=== PATIENT | female | born 1980 | race Caucasian/White ===

== ENCOUNTER 2020-02-04 12:20 | Outpatient (REF) | payer MEDICARE, MEDICAID, SELFPAY ==
[2020-02-04 13:42] LABS: Basophils Absolute Auto 0.1 X10*3/uL (0.0-0.2); Basophils Percent Auto 0.9 % (0-2); Eosinophils Absolute Auto 0.2 X10*3/uL (0.0-0.4); Eosinophils Percent Auto 2.8 % (0-4); Hematocrit 39.5 % (37-47); Hemoglobin 12.9 g/dl (12.0-16.0); Imm Gran Abs Auto 0.05 X10*3/uL (0.00-0.03); Imm Gran Pct Auto 0.7 % (0.0-0.4); Lymphocytes Absolute Auto 2.7 X10*3/uL (1.2-4.9); MANUAL DIFF FLAG NO; Mean Corpuscular HGB Conc 32.7 g/dl (31.0-35.0); Mean Corpuscular Hemoglobin 28.7 pg (27.0-33.0); Mean Platelet Volume 8.9 fL (9.4-12.3); Monocytes Absolute Auto 0.4 X10*3/uL (0.1-1.2); Monocytes Percent Auto 5.9 % (2-11); Neutrophils Absolute Auto 3.4 X10*3/uL (2.0-8.3); Neutrophils Percent Auto 49.7 % (45-73); Platelet Count 279 X10*3/uL (160-400); Red Blood Count 4.49 X10*6/uL (4.20-5.50); Red Cell Distribution Width 12.9 % (11.0-16.0); White Blood Count 6.8 X10*3/uL (4.8-10.8)
== END 2020-02-04 12:21 | disposition home or self-care (01) ==
LOC: HO.LABR 12:20
PROVIDERS: PCP Internal Medicine; Visit Provider Clinical Nurse Specialist Psychiatric/Mental Health, Adult
DX: Z79.899 Other long term (current) drug therapy (principal)
CPT/HCPCS: 36415; 85025

== ENCOUNTER 2020-03-06 13:56 | Outpatient (REF) | payer MEDICARE, MEDICAID, SELFPAY ==
[2020-03-06 14:46] LABS: Basophils Absolute Auto 0.1 X10*3/uL (0.0-0.2); Basophils Percent Auto 0.7 % (0-2); Eosinophils Absolute Auto 0.3 X10*3/uL (0.0-0.4); Eosinophils Percent Auto 2.9 % (0-4); Hematocrit 40.8 % (37-47); Hemoglobin 13.3 g/dl (12.0-16.0); Imm Gran Abs Auto 0.06 X10*3/uL (0.00-0.03); Imm Gran Pct Auto 0.7 % (0.0-0.4); Lymphocytes Absolute Auto 3.4 X10*3/uL (1.2-4.9); Lymphocytes Percent Auto 37.7 % (20-40); MANUAL DIFF FLAG NO; Mean Corpuscular HGB Conc 32.6 g/dl (31.0-35.0); Mean Corpuscular Hemoglobin 28.9 pg (27.0-33.0); Mean Corpuscular Volume 88.5 fL (80-98); Mean Platelet Volume 8.9 fL (9.4-12.3); Monocytes Absolute Auto 0.5 X10*3/uL (0.1-1.2); Monocytes Percent Auto 5.6 % (2-11); Neutrophils Absolute Auto 4.8 X10*3/uL (2.0-8.3); Neutrophils Percent Auto 52.4 % (45-73); Platelet Count 297 X10*3/uL (160-400); Red Blood Count 4.61 X10*6/uL (4.20-5.50); Red Cell Distribution Width 12.9 % (11.0-16.0); White Blood Count 9.1 X10*3/uL (4.8-10.8)
== END 2020-03-06 13:57 | disposition home or self-care (01) ==
LOC: HO.LABR 13:56
PROVIDERS: PCP Internal Medicine; Visit Provider Clinical Nurse Specialist Psychiatric/Mental Health, Adult
DX: Z79.899 Other long term (current) drug therapy (principal)
CPT/HCPCS: 36415; 85025

== ENCOUNTER 2020-04-03 12:06 | Outpatient (REF) | payer MEDICARE, MEDICAID, SELFPAY ==
[2020-04-03 12:39] LABS: MANUAL DIFF FLAG NO
[2020-04-03 12:44] LABS: Basophils Absolute Auto 0.1 X10*3/uL (0.0-0.2); Basophils Percent Auto 0.8 % (0-2); Eosinophils Absolute Auto 0.2 X10*3/uL (0.0-0.4); Eosinophils Percent Auto 2.9 % (0-4); Hematocrit 40.3 % (37-47); Hemoglobin 13.3 g/dl (12.0-16.0); Imm Gran Abs Auto 0.04 X10*3/uL (0.00-0.03); Imm Gran Pct Auto 0.5 % (0.0-0.4); Lymphocytes Percent Auto 38.6 % (20-40); Mean Corpuscular Volume 87.8 fL (80-98); Mean Platelet Volume 8.6 fL (9.4-12.3); Monocytes Absolute Auto 0.4 X10*3/uL (0.1-1.2); Monocytes Percent Auto 5.6 % (2-11); Neutrophils Absolute Auto 4.1 X10*3/uL (2.0-8.3); Neutrophils Percent Auto 51.6 % (45-73); Platelet Count 299 X10*3/uL (160-400); Red Blood Count 4.59 X10*6/uL (4.20-5.50); Red Cell Distribution Width 12.9 % (11.0-16.0); White Blood Count 7.9 X10*3/uL (4.8-10.8)
== END 2020-04-03 12:07 | disposition home or self-care (01) ==
LOC: HO.LAB 12:06
PROVIDERS: PCP Internal Medicine; Visit Provider Clinical Nurse Specialist Psychiatric/Mental Health, Adult
DX: Z79.899 Other long term (current) drug therapy (principal)
CPT/HCPCS: 36415; 85025

== ENCOUNTER 2020-05-07 11:04 | Outpatient (REF) | payer MEDICARE, MEDICAID, SELFPAY ==
[2020-05-07 12:03] LABS: MANUAL DIFF FLAG NO
[2020-05-07 12:13] LABS: Basophils Absolute Auto 0.1 X10*3/uL (0.0-0.2); Basophils Percent Auto 0.7 % (0-2); Eosinophils Absolute Auto 0.2 X10*3/uL (0.0-0.4); Eosinophils Percent Auto 2.4 % (0-4); Hematocrit 41.4 % (37-47); Hemoglobin 13.2 g/dl (12.0-16.0); Imm Gran Abs Auto 0.07 X10*3/uL (0.00-0.03); Imm Gran Pct Auto 0.8 % (0.0-0.4); Lymphocytes Absolute Auto 3.4 X10*3/uL (1.2-4.9); Lymphocytes Percent Auto 37.5 % (20-40); Mean Corpuscular HGB Conc 31.9 g/dl (31.0-35.0); Mean Corpuscular Hemoglobin 28.2 pg (27.0-33.0); Mean Corpuscular Volume 88.5 fL (80-98); Mean Platelet Volume 8.9 fL (9.4-12.3); Monocytes Absolute Auto 0.6 X10*3/uL (0.1-1.2); Monocytes Percent Auto 6.8 % (2-11); Neutrophils Absolute Auto 4.7 X10*3/uL (2.0-8.3); Neutrophils Percent Auto 51.8 % (45-73); Platelet Count 298 X10*3/uL (160-400); Red Blood Count 4.68 X10*6/uL (4.20-5.50); Red Cell Distribution Width 12.8 % (11.0-16.0); White Blood Count 9.1 X10*3/uL (4.8-10.8)
== END 2020-05-07 11:05 | disposition home or self-care (01) ==
LOC: HO.LABR 11:04
PROVIDERS: PCP Internal Medicine; Visit Provider Clinical Nurse Specialist Psychiatric/Mental Health, Adult
DX: Z79.899 Other long term (current) drug therapy (principal)
CPT/HCPCS: 36415; 85025

== ENCOUNTER 2020-06-05 14:39 | Outpatient (REF) | payer MEDICARE, MEDICAID, SELFPAY ==
[2020-06-05 15:34] LABS: MANUAL DIFF FLAG NO
[2020-06-05 15:39] LABS: Basophils Absolute Auto 0.1 X10*3/uL (0.0-0.2); Basophils Percent Auto 0.8 % (0-2); Eosinophils Absolute Auto 0.2 X10*3/uL (0.0-0.4); Eosinophils Percent Auto 3.3 % (0-4); Hematocrit 38.8 % (37-47); Hemoglobin 12.7 g/dl (12.0-16.0); Imm Gran Abs Auto 0.05 X10*3/uL (0.00-0.03); Imm Gran Pct Auto 0.7 % (0.0-0.4); Lymphocytes Absolute Auto 2.4 X10*3/uL (1.2-4.9); Lymphocytes Percent Auto 32.5 % (20-40); Mean Corpuscular HGB Conc 32.7 g/dl (31.0-35.0); Mean Corpuscular Hemoglobin 28.9 pg (27.0-33.0); Mean Corpuscular Volume 88.2 fL (80-98); Mean Platelet Volume 8.9 fL (9.4-12.3); Monocytes Absolute Auto 0.6 X10*3/uL (0.1-1.2); Monocytes Percent Auto 7.5 % (2-11); Neut%MD 55.2 %; Neutrophils Absolute Auto 4.1 X10*3/uL (2.0-8.3); Neutrophils Percent Auto 55.2 % (45-73); Platelet Count 295 X10*3/uL (160-400); WBCANC 7.4 X10*3/uL; White Blood Count 7.4 X10*3/uL (4.8-10.8)
== END 2020-06-05 14:40 | disposition home or self-care (01) ==
LOC: HO.LABR 14:39
PROVIDERS: PCP Internal Medicine; Visit Provider Clinical Nurse Specialist Psychiatric/Mental Health, Adult
DX: Z79.899 Other long term (current) drug therapy (principal)
CPT/HCPCS: 36415; 85025; 85048

== ENCOUNTER 2020-07-03 14:36 | Outpatient (REF) | payer MEDICARE, MEDICAID, SELFPAY ==
[2020-07-03 15:13] LABS: MANUAL DIFF FLAG NO
[2020-07-03 15:18] LABS: Basophils Absolute Auto 0.1 X10*3/uL (0.0-0.2); Basophils Percent Auto 0.6 % (0-2); Eosinophils Absolute Auto 0.2 X10*3/uL (0.0-0.4); Eosinophils Percent Auto 2.2 % (0-4); Hematocrit 39.8 % (37-47); Hemoglobin 13.1 g/dl (12.0-16.0); Imm Gran Abs Auto 0.04 X10*3/uL (0.00-0.03); Imm Gran Pct Auto 0.4 % (0.0-0.4); Lymphocytes Absolute Auto 3.8 X10*3/uL (1.2-4.9); Lymphocytes Percent Auto 41.6 % (20-40); Mean Corpuscular HGB Conc 32.9 g/dl (31.0-35.0); Mean Corpuscular Volume 88.1 fL (80-98); Monocytes Absolute Auto 0.6 X10*3/uL (0.1-1.2); Monocytes Percent Auto 6.4 % (2-11); Neut%MD 48.8 %; Neutrophils Absolute Auto 4.4 X10*3/uL (2.0-8.3); Neutrophils Percent Auto 48.8 % (45-73); Platelet Count 276 X10*3/uL (160-400); Red Blood Count 4.52 X10*6/uL (4.20-5.50); Red Cell Distribution Width 13.3 % (11.0-16.0)
== END 2020-07-03 14:37 | disposition home or self-care (01) ==
LOC: HO.LABR 14:36
PROVIDERS: PCP Internal Medicine; Visit Provider Clinical Nurse Specialist Psychiatric/Mental Health, Adult
DX: Z79.899 Other long term (current) drug therapy (principal)
CPT/HCPCS: 36415; 85025; 85048

== ENCOUNTER 2020-08-03 10:15 | Outpatient (REF) | payer MEDICARE, MEDICAID, SELFPAY ==
[2020-08-03 10:52] LABS: MANUAL DIFF FLAG NO
[2020-08-03 11:00] LABS: Basophils Absolute Auto 0.1 X10*3/uL (0.0-0.2); Basophils Percent Auto 0.6 % (0-2); Eosinophils Absolute Auto 0.3 X10*3/uL (0.0-0.4); Eosinophils Percent Auto 2.5 % (0-4); Hematocrit 40.7 % (37-47); Hemoglobin 13.2 g/dl (12.0-16.0); Imm Gran Abs Auto 0.11 X10*3/uL (0.00-0.03); Imm Gran Pct Auto 1.1 % (0.0-0.4); Lymphocytes Absolute Auto 3.2 X10*3/uL (1.2-4.9); Lymphocytes Percent Auto 30.6 % (20-40); Mean Corpuscular HGB Conc 32.4 g/dl (31.0-35.0); Mean Corpuscular Hemoglobin 28.3 pg (27.0-33.0); Mean Corpuscular Volume 87.2 fL (80-98); Mean Platelet Volume 8.6 fL (9.4-12.3); Monocytes Absolute Auto 0.7 X10*3/uL (0.1-1.2); Neutrophils Percent Auto 58.2 % (45-73); Platelet Count 268 X10*3/uL (160-400); Red Blood Count 4.67 X10*6/uL (4.20-5.50); Red Cell Distribution Width 13.1 % (11.0-16.0); White Blood Count 10.3 X10*3/uL (4.8-10.8)
== END 2020-08-03 10:16 | disposition home or self-care (01) ==
LOC: HO.LABR 10:15
PROVIDERS: PCP Internal Medicine; Visit Provider Clinical Nurse Specialist Psychiatric/Mental Health, Adult
DX: Z79.899 Other long term (current) drug therapy (principal)
CPT/HCPCS: 36415; 85025

== ENCOUNTER 2020-09-03 09:43 | Outpatient (REF) | payer MEDICARE, MEDICAID, SELFPAY ==
[2020-09-03 10:10] LABS: MANUAL DIFF FLAG NO
[2020-09-03 10:20] LABS: Basophils Percent Auto 0.4 % (0-2); Eosinophils Absolute Auto 0.2 X10*3/uL (0.0-0.4); Eosinophils Percent Auto 2.3 % (0-4); Hematocrit 39.7 % (37-47); Hemoglobin 12.8 g/dl (12.0-16.0); Imm Gran Abs Auto 0.11 X10*3/uL (0.00-0.03); Imm Gran Pct Auto 1.1 % (0.0-0.4); Lymphocytes Absolute Auto 3.6 X10*3/uL (1.2-4.9); Lymphocytes Percent Auto 34.3 % (20-40); Mean Corpuscular HGB Conc 32.2 g/dl (31.0-35.0); Mean Corpuscular Hemoglobin 28.3 pg (27.0-33.0); Mean Corpuscular Volume 87.8 fL (80-98); Mean Platelet Volume 8.7 fL (9.4-12.3); Monocytes Absolute Auto 0.8 X10*3/uL (0.1-1.2); Monocytes Percent Auto 7.6 % (2-11); Neutrophils Absolute Auto 5.7 X10*3/uL (2.0-8.3); Neutrophils Percent Auto 54.3 % (45-73); Platelet Count 287 X10*3/uL (160-400); Red Blood Count 4.52 X10*6/uL (4.20-5.50); White Blood Count 10.5 X10*3/uL (4.8-10.8)
== END 2020-09-03 09:44 | disposition home or self-care (01) ==
LOC: HO.LABR 09:43
PROVIDERS: PCP Internal Medicine; Visit Provider Clinical Nurse Specialist Psychiatric/Mental Health, Adult
DX: Z79.899 Other long term (current) drug therapy (principal)
CPT/HCPCS: 36415; 85025

== ENCOUNTER 2020-10-05 11:02 | Outpatient (REF) | payer MEDICARE, MEDICAID, SELFPAY ==
[2020-10-05 11:36] LABS: MANUAL DIFF FLAG NO
[2020-10-05 11:44] LABS: Basophils Absolute Auto 0.1 X10*3/uL (0.0-0.2); Basophils Percent Auto 0.6 % (0-2); Eosinophils Absolute Auto 0.2 X10*3/uL (0.0-0.4); Eosinophils Percent Auto 1.7 % (0-4); Hematocrit 37.9 % (37-47); Hemoglobin 12.4 g/dl (12.0-16.0); Imm Gran Abs Auto 0.09 X10*3/uL (0.00-0.03); Imm Gran Pct Auto 0.7 % (0.0-0.4); Lymphocytes Absolute Auto 2.7 X10*3/uL (1.2-4.9); Lymphocytes Percent Auto 21.5 % (20-40); Mean Corpuscular HGB Conc 32.7 g/dl (31.0-35.0); Mean Corpuscular Hemoglobin 28.8 pg (27.0-33.0); Mean Corpuscular Volume 87.9 fL (80-98); Mean Platelet Volume 8.6 fL (9.4-12.3); Monocytes Absolute Auto 0.9 X10*3/uL (0.1-1.2); Monocytes Percent Auto 7.4 % (2-11); Neutrophils Absolute Auto 8.5 X10*3/uL (2.0-8.3); Neutrophils Percent Auto 68.1 % (45-73); Platelet Count 289 X10*3/uL (160-400); Red Blood Count 4.31 X10*6/uL (4.20-5.50); Red Cell Distribution Width 12.9 % (11.0-16.0); White Blood Count 12.4 X10*3/uL (4.8-10.8)
== END 2020-10-05 11:03 | disposition home or self-care (01) ==
LOC: HO.LABR 11:02
PROVIDERS: PCP Internal Medicine; Visit Provider Clinical Nurse Specialist Psychiatric/Mental Health, Adult
DX: Z79.899 Other long term (current) drug therapy (principal)
CPT/HCPCS: 36415; 85025

== ENCOUNTER 2020-10-29 12:24 | Outpatient (REF) | payer MEDICARE, MEDICAID, SELFPAY ==
[2020-10-29 13:11] LABS: MANUAL DIFF FLAG NO
[2020-10-29 13:20] LABS: Basophils Absolute Auto 0.1 X10*3/uL (0.0-0.2); Basophils Percent Auto 0.7 % (0-2); Eosinophils Absolute Auto 0.2 X10*3/uL (0.0-0.4); Eosinophils Percent Auto 2.1 % (0-4); Hematocrit 40.9 % (37-47); Hemoglobin 13.3 g/dl (12.0-16.0); Imm Gran Abs Auto 0.07 X10*3/uL (0.00-0.03); Imm Gran Pct Auto 0.8 % (0.0-0.4); Lymphocytes Absolute Auto 1.9 X10*3/uL (1.2-4.9); Lymphocytes Percent Auto 22.5 % (20-40); Mean Corpuscular HGB Conc 32.5 g/dl (31.0-35.0); Mean Corpuscular Hemoglobin 28.8 pg (27.0-33.0); Mean Corpuscular Volume 88.5 fL (80-98); Mean Platelet Volume 8.7 fL (9.4-12.3); Monocytes Absolute Auto 0.6 X10*3/uL (0.1-1.2); Monocytes Percent Auto 6.9 % (2-11); Neutrophils Absolute Auto 5.7 X10*3/uL (2.0-8.3); Platelet Count 290 X10*3/uL (160-400); Red Blood Count 4.62 X10*6/uL (4.20-5.50); Red Cell Distribution Width 12.9 % (11.0-16.0); White Blood Count 8.6 X10*3/uL (4.8-10.8)
== END 2020-10-29 12:25 | disposition home or self-care (01) ==
LOC: HO.LABR 12:24
PROVIDERS: PCP Internal Medicine; Visit Provider Clinical Nurse Specialist Psychiatric/Mental Health, Adult
DX: Z79.899 Other long term (current) drug therapy (principal)
CPT/HCPCS: 36415; 85025

== ENCOUNTER 2020-12-02 10:01 | Outpatient (REF) | payer MEDICARE, MEDICAID, SELFPAY ==
[2020-12-02 10:23] LABS: MANUAL DIFF FLAG NO
[2020-12-02 10:32] LABS: Basophils Absolute Auto 0.1 X10*3/uL (0.0-0.2); Basophils Percent Auto 0.7 % (0-2); Eosinophils Absolute Auto 0.2 X10*3/uL (0.0-0.4); Eosinophils Percent Auto 3.1 % (0-4); Hematocrit 40.7 % (37-47); Hemoglobin 13.3 g/dl (12.0-16.0); Imm Gran Abs Auto 0.05 X10*3/uL (0.00-0.03); Imm Gran Pct Auto 0.7 % (0.0-0.4); Lymphocytes Absolute Auto 2.8 X10*3/uL (1.2-4.9); Lymphocytes Percent Auto 37.5 % (20-40); Mean Corpuscular HGB Conc 32.7 g/dl (31.0-35.0); Mean Corpuscular Hemoglobin 28.4 pg (27.0-33.0); Mean Platelet Volume 8.4 fL (9.4-12.3); Monocytes Absolute Auto 0.5 X10*3/uL (0.1-1.2); Monocytes Percent Auto 6.1 % (2-11); Neutrophils Absolute Auto 3.9 X10*3/uL (2.0-8.3); Neutrophils Percent Auto 51.9 % (45-73); Platelet Count 271 X10*3/uL (160-400); Red Blood Count 4.68 X10*6/uL (4.20-5.50); White Blood Count 7.5 X10*3/uL (4.8-10.8)
== END 2020-12-02 10:02 | disposition home or self-care (01) ==
LOC: HO.LABR 10:01
PROVIDERS: PCP Internal Medicine; Visit Provider Clinical Nurse Specialist Psychiatric/Mental Health, Adult
DX: Z79.899 Other long term (current) drug therapy (principal)
CPT/HCPCS: 36415; 85025

== ENCOUNTER 2021-01-11 14:02 | Outpatient (REF) | payer MEDICARE, MEDICAID, SELFPAY ==
[2021-01-11 15:58] LABS: Basophils Absolute Auto 0.1 X10*3/uL (0.0-0.2); Basophils Percent Auto 0.6 % (0-2); Eosinophils Absolute Auto 0.2 X10*3/uL (0.0-0.4); Eosinophils Percent Auto 1.5 % (0-4); Hematocrit 41.5 % (37-47); Hemoglobin 13.5 g/dl (12.0-16.0); Imm Gran Abs Auto 0.07 X10*3/uL (0.00-0.03); Imm Gran Pct Auto 0.6 % (0.0-0.4); Lymphocytes Absolute Auto 2.9 X10*3/uL (1.2-4.9); Lymphocytes Percent Auto 26.6 % (20-40); MANUAL DIFF FLAG NO; Mean Corpuscular HGB Conc 32.5 g/dl (31.0-35.0); Mean Corpuscular Hemoglobin 28.7 pg (27.0-33.0); Mean Corpuscular Volume 88.1 fL (80-98); Mean Platelet Volume 8.9 fL (9.4-12.3); Monocytes Absolute Auto 0.6 X10*3/uL (0.1-1.2); Monocytes Percent Auto 5.1 % (2-11); Neut%MD 65.6 %; Neutrophils Absolute Auto 7.1 X10*3/uL (2.0-8.3); Neutrophils Percent Auto 65.6 % (45-73); Platelet Count 289 X10*3/uL (160-400); Red Blood Count 4.71 X10*6/uL (4.20-5.50); Red Cell Distribution Width 13.2 % (11.0-16.0); WBCANC 10.9 X10*3/uL; White Blood Count 10.9 X10*3/uL (4.8-10.8)
== END 2021-01-11 14:03 | disposition home or self-care (01) ==
LOC: HO.LABR 14:02
PROVIDERS: PCP Internal Medicine; Visit Provider Clinical Nurse Specialist Psychiatric/Mental Health, Adult
DX: Z79.899 Other long term (current) drug therapy (principal)
CPT/HCPCS: 36415; 85025

== ENCOUNTER 2021-02-02 11:04 | Outpatient (REF) | payer MEDICARE, MEDICAID, SELFPAY ==
[2021-02-02 12:01] LABS: Neutrophils Absolute Auto 6.4 X10*3/uL (2.0-8.3); White Blood Count 10.4 X10*3/uL (4.8-10.8)
== END 2021-02-02 11:05 | disposition home or self-care (01) ==
LOC: HO.LABR 11:04
PROVIDERS: PCP Internal Medicine; Visit Provider Clinical Nurse Specialist Psychiatric/Mental Health, Adult
DX: Z79.899 Other long term (current) drug therapy (principal)
CPT/HCPCS: 36415; 85048

== ENCOUNTER 2021-03-02 14:21 | Outpatient (REF) | payer MEDICARE, MEDICAID, SELFPAY ==
[2021-03-02 14:29] LABS: MANUAL DIFF FLAG NO
[2021-03-02 14:46] LABS: Basophils Absolute Auto 0.1 X10*3/uL (0.0-0.2); Basophils Percent Auto 0.6 % (0-2); Eosinophils Absolute Auto 0.2 X10*3/uL (0.0-0.4); Eosinophils Percent Auto 2.7 % (0-4); Hematocrit 38.8 % (37.0-47.0); Hemoglobin 12.8 g/dl (12.0-16.0); Imm Gran Abs Auto 0.07 X10*3/uL (0.00-0.03); Imm Gran Pct Auto 0.9 % (0.0-0.4); Lymphocytes Absolute Auto 2.7 X10*3/uL (1.2-4.9); Lymphocytes Percent Auto 35.1 % (20-40); Mean Corpuscular Hemoglobin 28.8 pg (27.0-33.0); Mean Corpuscular Volume 87.4 fL (80.0-98.0); Mean Platelet Volume 8.5 fL (9.4-12.3); Monocytes Absolute Auto 0.6 X10*3/uL (0.1-1.2); Monocytes Percent Auto 7.4 % (2-11); Neutrophils Absolute Auto 4.1 x10*3/uL (2.0-8.3); Neutrophils Percent Auto 53.3 % (45-73); Platelet Count 276 X10*3/uL (160-400); Red Blood Count 4.44 X10*6/uL (4.20-5.50); Red Cell Distribution Width 13.2 % (11.0-16.0); White Blood Count 7.7 X10*3/uL (4.8-10.8)
== END 2021-03-02 14:22 | disposition home or self-care (01) ==
LOC: HO.LABR 14:21
PROVIDERS: PCP Internal Medicine; Visit Provider Clinical Nurse Specialist Psychiatric/Mental Health, Adult
DX: Z79.899 Other long term (current) drug therapy (principal)
CPT/HCPCS: 36415; 85025

== ENCOUNTER 2021-04-01 12:33 | Outpatient (REF) | payer MEDICARE, MEDICAID, SELFPAY ==
[2021-04-01 12:44] LABS: MANUAL DIFF FLAG NO
[2021-04-01 13:08] LABS: Basophils Percent Auto 0.5 % (0-2); Eosinophils Absolute Auto 0.1 X10*3/uL (0.0-0.4); Eosinophils Percent Auto 1.1 % (0-4); Hematocrit 38.5 % (37.0-47.0); Hemoglobin 12.5 g/dl (12.0-16.0); Imm Gran Abs Auto 0.06 X10*3/uL (0.00-0.03); Imm Gran Pct Auto 0.8 % (0.0-0.4); Lymphocytes Absolute Auto 2.5 X10*3/uL (1.2-4.9); Lymphocytes Percent Auto 31.4 % (20-40); Mean Corpuscular HGB Conc 32.5 g/dl (31.0-35.0); Mean Corpuscular Hemoglobin 28.6 pg (27.0-33.0); Mean Corpuscular Volume 88.1 fL (80.0-98.0); Mean Platelet Volume 8.7 fL (9.4-12.3); Monocytes Absolute Auto 0.4 X10*3/uL (0.1-1.2); Monocytes Percent Auto 5.6 % (2-11); Neut%MD 60.6 %; Neutrophils Absolute Auto 4.8 x10*3/uL (2.0-8.3); Neutrophils Percent Auto 60.6 % (45-73); Platelet Count 277 X10*3/uL (160-400); Red Blood Count 4.37 X10*6/uL (4.20-5.50); WBCANC 7.9 X10*3/uL; White Blood Count 7.9 X10*3/uL (4.8-10.8)
== END 2021-04-01 12:34 | disposition home or self-care (01) ==
LOC: HO.LABR 12:33
PROVIDERS: PCP Internal Medicine; Visit Provider Clinical Nurse Specialist Psychiatric/Mental Health, Adult
DX: Z79.899 Other long term (current) drug therapy (principal)
CPT/HCPCS: 36415; 85025

== ENCOUNTER 2021-05-07 14:23 | Outpatient (REF) | payer MEDICARE, MEDICAID, SELFPAY ==
[2021-05-07 14:39] LABS: MANUAL DIFF FLAG NO
[2021-05-07 14:50] LABS: Basophils Absolute Auto 0.1 X10*3/uL (0.0-0.2); Basophils Percent Auto 0.7 % (0-2); Eosinophils Absolute Auto 0.2 X10*3/uL (0.0-0.4); Eosinophils Percent Auto 2.5 % (0-4); Hemoglobin 12.9 g/dl (12.0-16.0); Imm Gran Abs Auto 0.04 X10*3/uL (0.00-0.03); Imm Gran Pct Auto 0.5 % (0.0-0.4); Lymphocytes Absolute Auto 4.1 X10*3/uL (1.2-4.9); Lymphocytes Percent Auto 47.2 % (20-40); Mean Corpuscular HGB Conc 31.5 g/dl (31.0-35.0); Mean Corpuscular Hemoglobin 28.2 pg (27.0-33.0); Mean Corpuscular Volume 89.5 fL (80.0-98.0); Mean Platelet Volume 8.7 fL (9.4-12.3); Monocytes Absolute Auto 0.6 X10*3/uL (0.1-1.2); Monocytes Percent Auto 6.5 % (2-11); Neutrophils Absolute Auto 3.7 x10*3/uL (2.0-8.3); Neutrophils Percent Auto 42.6 % (45-73); Platelet Count 280 X10*3/uL (160-400); Red Blood Count 4.58 X10*6/uL (4.20-5.50); Red Cell Distribution Width 13.1 % (11.0-16.0); White Blood Count 8.6 X10*3/uL (4.8-10.8)
== END 2021-05-07 14:24 | disposition home or self-care (01) ==
LOC: HO.LABR 14:23
PROVIDERS: PCP Internal Medicine; Visit Provider Clinical Nurse Specialist Psychiatric/Mental Health, Adult
DX: Z79.899 Other long term (current) drug therapy (principal)
CPT/HCPCS: 36415; 85025

== ENCOUNTER 2021-06-08 14:08 | Outpatient (REF) | payer MEDICARE, MEDICAID, SELFPAY ==
[2021-06-08 14:33] LABS: MANUAL DIFF FLAG NO
[2021-06-08 14:54] LABS: Basophils Absolute Auto 0.1 X10*3/uL (0.0-0.2); Basophils Percent Auto 0.6 % (0-2); Eosinophils Absolute Auto 0.2 X10*3/uL (0.0-0.4); Eosinophils Percent Auto 2.5 % (0-4); Hematocrit 39.9 % (37.0-47.0); Imm Gran Abs Auto 0.05 X10*3/uL (0.00-0.03); Imm Gran Pct Auto 0.6 % (0.0-0.4); Lymphocytes Absolute Auto 4.1 X10*3/uL (1.2-4.9); Lymphocytes Percent Auto 47.4 % (20-40); Mean Corpuscular HGB Conc 32.6 g/dl (31.0-35.0); Mean Corpuscular Hemoglobin 28.6 pg (27.0-33.0); Mean Corpuscular Volume 87.9 fL (80.0-98.0); Mean Platelet Volume 8.5 fL (9.4-12.3); Monocytes Absolute Auto 0.5 X10*3/uL (0.1-1.2); Neut%MD 42.9 %; Neutrophils Absolute Auto 3.7 x10*3/uL (2.0-8.3); Neutrophils Percent Auto 42.9 % (45-73); Platelet Count 298 X10*3/uL (160-400); Red Blood Count 4.54 X10*6/uL (4.20-5.50); WBCANC 8.7 X10*3/uL; White Blood Count 8.7 X10*3/uL (4.8-10.8)
== END 2021-06-08 14:09 | disposition home or self-care (01) ==
LOC: HO.LABR 14:08
PROVIDERS: PCP Internal Medicine; Visit Provider Clinical Nurse Specialist Psychiatric/Mental Health, Adult
DX: Z79.899 Other long term (current) drug therapy (principal)
CPT/HCPCS: 36415; 85025

== ENCOUNTER 2021-07-07 11:58 | Outpatient (REF) | payer MEDICARE, MEDICAID, SELFPAY ==
[2021-07-07 12:13] LABS: MANUAL DIFF FLAG NO
[2021-07-07 12:33] LABS: Basophils Percent Auto 0.5 % (0-2); Eosinophils Absolute Auto 0.2 X10*3/uL (0.0-0.4); Hematocrit 41.1 % (37.0-47.0); Hemoglobin 13.3 g/dl (12.0-16.0); Imm Gran Abs Auto 0.05 X10*3/uL (0.00-0.03); Imm Gran Pct Auto 0.6 % (0.0-0.4); Lymphocytes Absolute Auto 3.3 X10*3/uL (1.2-4.9); Lymphocytes Percent Auto 41.2 % (20-40); Mean Corpuscular HGB Conc 32.4 g/dl (31.0-35.0); Mean Corpuscular Hemoglobin 28.3 pg (27.0-33.0); Mean Corpuscular Volume 87.4 fL (80.0-98.0); Mean Platelet Volume 8.7 fL (9.4-12.3); Monocytes Absolute Auto 0.5 X10*3/uL (0.1-1.2); Monocytes Percent Auto 6.2 % (2-11); Neutrophils Absolute Auto 3.9 x10*3/uL (2.0-8.3); Neutrophils Percent Auto 48.5 % (45-73); Platelet Count 280 X10*3/uL (160-400); Red Cell Distribution Width 12.8 % (11.0-16.0); White Blood Count 8.1 X10*3/uL (4.8-10.8)
== END 2021-07-07 11:59 | disposition home or self-care (01) ==
LOC: HO.LABR 11:58
PROVIDERS: PCP Internal Medicine; Visit Provider Clinical Nurse Specialist Psychiatric/Mental Health, Adult
DX: Z79.899 Other long term (current) drug therapy (principal)
CPT/HCPCS: 36415; 85025

== ENCOUNTER 2022-07-22 15:18 | Emergency (ER) | payer MEDICARE, MEDICAID, SELFPAY ==
[2022-07-22 15:31] VITALS: BP 111/83; BP 118/77; PULSE 120; PULSE 124; RESP 18; TEMP 36.8; O2SAT 96; BMI 28.3
[2022-07-22 16:09] LABS: Amphetamine Screen Urine Not Detected (Not Detect); Barbiturates, Urine Not Detected (Not Detect); Benzodiazepines Screen Urine Not Detected (Not Detect); Cannabinoid Screen Urine Not Detected (Not Detect); Cocaine Screen Urine Not Detected (Not Detect); Fentanyl, urine POSITIVE (Not Detect); Opiate Screen Urine Not Detected (Not Detect); Phencyclidine Screen Urine Not Detected (Not Detect)
[2022-07-22 16:19] LABS: COVID-19 Test Negative (Negative); IDNOW Serial# 08D9AD1C
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
[2022-07-22 16:26] LABS: Appearance Urine Cloudy; Color Urine Yellow; Glucose Urine UA Negative (Negative); Leukocyte Esterase Urine Negative (Negative); Nitrite Urine Negative (Negative); PH 5.5 (5.0-9.0); Urine Blood Negative (Negative); Urine Ketones Negative (Negative); Urine Protein Negative (Neg-Trace)
[2022-07-22 16:27] LABS: UPreg QC Valid YES; Urine Pregnancy NEGATIVE (NEGATIVE)
== END 2022-07-22 16:46 | disposition home or self-care (01) ==
PROVIDERS: Physician Assistant Medical; Emergency Provider Emergency Medicine; PCP Internal Medicine
DX: F33.1 Major depressive disorder, recurrent, moderate (principal); F41.1 Generalized anxiety disorder; F43.0 Acute stress reaction; M79.601 Pain in right arm; Z20.822 Contact with and (suspected) exposure to COVID-19; Z20.828 Contact with and (suspected) exposure to other viral communicable diseases; Z79.899 Other long term (current) drug therapy
CPT/HCPCS: 80307; 81003; 81025; 87635; 99284

== ENCOUNTER 2023-01-24 17:37 | Emergency (ER) | payer MEDICARE, MEDICAID, SELFPAY ==
[2023-01-24 18:19] VITALS: BP 113/86; PULSE 103; RESP 17; TEMP 37.7; O2SAT 98
--- NOTE | 2023-01-24 18:20 | ED.GENADULT ---
HPI - General Adult General Chief complaint: Arrhythmia/Palpitations Stated complaint: Fluttering chest, fatigued Time Seen by Provider: 01/24/23 19:00 Source: patient Mode of arrival: ambulatory Limitations: no limitations History of Present Illness HPI narrative: patient comes to the emergency room complaining of palpitations. Patient states that her heart rate was up to 120. The patient states that she has had in the past multiple episodes of palpitations. 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 Circles time, patient states that she is asymptomatic. Related Data Allergies Allergy/AdvReac Type Severity Reaction Status Date / Time morphine [MORPHINE] Allergy Unknown PARALYZED Unverified 01/02/20 15:30 Penicillins [PENICILLINS] Allergy Unknown ITCHING Unverified 01/02/20 15:30 methylphenidate AdvReac Intermediate DEPRESSION Unverified 01/02/20 15:30 [From RITALIN] divalproex sodium AdvReac Unknown AFFECTED Unverified 01/02/20 15:30 [From DEPAKOTE] SLEEP, SHORT-TERM MEMORY From Thorazine Allergy Unknown UNKNOWN Uncoded 01/02/20 15:30 From Geodon AdvReac Unknown DYSTONIA Uncoded 01/02/20 15:30 Review of Systems Review of Systems: ?Constitutional : No Weight loss, No Fever, No Chills, No Night Sweats, No Fatigue, No Malaise ENT/Mouth : No Hearing loss, No Ear Pain, No Nasal Congestion, No Sinus Pain, No Hoarseness, No sore throat, No Rhinorrhea, No Swallowing Difficulty Eyes: No Eye Pain, No Swelling, No Redness, No Foreign Body, No Discharge, No Vision Changes Cardiovascular : No Chest Pain, No SOB, No Dyspnea on Exertion, No Orthopnea, No Edema,? complaining ofPalpitations Respiratory : No Cough, No Sputum, No Wheezing, No Smoke Exposure, No Dyspnea Gastrointestinal : No Nausea, No Vomiting, No Diarrhea, No Constipation, No abdominal Pain, No Hematochezia, No Melena Genitourinary : no irregular bleeding, No Dysuria, No Urinary Frequency, No Hematuria, No Urinary Incontinence, No Urgency, No Flank Pain, No Urinary Flow Changes, No Hesitancy Musculoskeletal : No joint pain, No Myalgias, No Joint Swelling Skin : No Skin Lesions, No rash Neuro : No Weakness, No Numbness, No Paresthesias, No Loss of Consciousness, No Dizziness, No Headache Psych : No Anxiety/Panic, No Depression, No SI/HI/AH/VH, No Social Issues, Heme/Lymph: No Bruising, No Bleeding,No Lymphadenopathy Endocrine : No Polyuria, No Polydipsia, No Temperature Intolerance [facility] Social History Social History Smoked in Last 30 Days: No Use of substances other than those prescribed or required for medical reasons: No Advance Directives: No Advance Directives Information Provided: No Patient : No Physical Exam ED Vital Signs: Vital Signs - 24 hr 01/24/23 18:19 01/24/23 20:07 Temperature 99.9 F 98.1 F Pulse Rate 103 H 89 Respiratory Rate 17 17 Blood Pressure 113/86 136/81 Pulse Oximetry 98 100 Oxygen Delivery Method Room Air Room Air BMI result Body Mass Index 30.0 Const Other: ?Appearance: Alert.? Oriented X3.? No acute distress.?? Eyes: Pupils equal, round and reactive to light.? ENT: Pharynx normal.? Neck: Normal inspection.? Neck supple. No lymph nodes noted. No crepitus CVS: Normal heart rate and rhythm.? Pulses normal. Normal S1 and S2 Respiratory: No respiratory distress.? Breath sounds normal. No Wheezing. No rales? Abdomen: Soft and nontender. No rigidity. No distention.? Skin: Skin warm and dry.? Normal skin color.? Normal skin turgor.? Extremities: No lower extremity edema. No Lacerations. No Rash Neuro: Oriented X 3.? No motor deficit.? No sensory deficit. Moving all extremities. No slurred speech. CN 2 through 12 grossly intact Psych: calm, cooperative, normal affect Course Course Course Narrative: This is an RME: Additional HPI, ROS, PE not included below will be deferred to primary provider. This is a [id number], with a hx of depression, anxiety, hx of rapid heart rate followed by Dr. 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 Reports some shortness of breath intermittently over the last several hours. Reporting feeling very weak and fatigue . States that she has had palpitations which are intermittent. Plan: Labs, EKG, CXR Medical Decision Making Medical Decision Making [facility] Narrative: - My interpretation of EKG: Sinus tachycardia, heart rate 102, no ST segment depression or elevation, nonspecific T-wave inversion in III, QTC 419 - my interpretation of chest x-ray: No pneumonia - my interpretation of labs: hematology at baseline, chemistry unremarkable, chemistry unremarkable, troponin negative, TSH normal, negative for COVID RSV and influenza - discussed with the patient she may need a Holter evaluation, patient has not had 1 since 4 years, never had a stress test. It is also possible the patient may be anxious Differential Diagnosis Differential Diagnoses: The differential diagnosis associated with the presentation includes ( anxiety, sinus tachycardia, SVT) Admission/Observation Consideration of admission/observation: Escalation of care including admission/observation considered ( based on patient's history, on arrival admission was considered) Lab Data MDM Lab Attestation statement: I reviewed the patient's lab results. 01/24/23 19:06 01/24/23 19:06 Labs: Lab Results 01/24/23 Range/Units 19:06 WBC 10.7 (4.8-10.8) X10*3/uL RBC 4.38 (4.20-5.50) X10*6/uL Hgb 12.8 (12.0-16.0) g/dl Hct 38.2 (37.0-47.0) % MCV 87.2 (80.0-98.0) fL MCH 29.2 (27.0-33.0) pg MCHC 33.5 (31.0-35.0) g/dl RDW 13.6 (11.0-16.0) % Plt Count 294 (160-400) X10*3/uL MPV 8.5 L (9.4-12.3) fL Immature Gran % (Auto) 0.7 H (0.0-0.4) % Neut % (Auto) 55.1 (45-73) % Lymph % (Auto) 35.6 (20-40) % [place] % (Auto) 5.5 (2-11) % Eos % (Auto) 2.5 (0-4) % Baso % (Auto) 0.6 (0-2) % Lymph # (Auto) 3.8 (1.2-4.9) X10*3/uL [place] # (Auto) 0.6 (0.1-1.2) X10*3/uL Eos # (Auto) 0.3 (0.0-0.4) X10*3/uL Baso # (Auto) 0.1 (0.0-0.2) X10*3/uL Abs Immat Gran (auto) 0.07 H (0.00-0.03) X10*3/uL Absolute Neuts (auto) 5.9 (2.0-8.3) x10*3/uL Absolute Nucleated RBC 0.000 (0.0-0.012) X10*3/uL Nucleated RBC % (auto) 0.0 (0.0-0.2) /100WBC Sodium 138 (135-145) mmol/L Potassium 4.2 (3.3-5.1) mmol/L Chloride 106 (96-108) mmol/L Carbon Dioxide 22 (22-29) mmol/L Anion Gap 14 (12-20) BUN 14 (9-16) mg/dL Creatinine 0.77 (0.5-1.4) mg/dL Estim Creat Clear Calc 93.3 Estimated GFR > 60 Random Glucose 98 (60-115) mg/dL Calcium 9.4 (8.4-10.2) mg/dL Total Bilirubin 0.2 (0.0-1.0) mg/dL Direct Bilirubin 0.2 (0.0-0.5) mg/dL AST 14 (5-31) U/L ALT 15 (0-31) U/L Alkaline Phosphatase 56 (39-117) U/L Troponin I High Sens < 2.7 (<3.5-17.0) ng/L Total Protein 7.2 (6.5-8.0) g/dL Albumin 4.2 (3.5-5.0) g/dL TSH 1.02 (0.32-4.0) uIU/mL Influenza Type A (PCR) NEGATIVE (Negative) Influenza Type B (PCR) NEGATIVE (Negative) RSV RNA Qual (PCR) NEGATIVE (Negative) SARS-CoV-2 RNA (RT-PCR) NEGATIVE (Negative) Independent Interpretation I performed an independent interpretation of an: Plain X-Ray Radiology Impression Discussion of test interpretation with radiology: I have reviewed the radiologist's reading. Radiologist Impression: FINDINGS: The cardiomediastinal silhouette is normal. There is no focal lung consolidation or pleural effusion. The bony structures and soft tissues are unremarkable. XR/XR chest 2V IMPRESSION: No active cardiopulmonary disease. Critical Care Time Critical Care Time Critical Care Time: Yes Total Critical Care Time: 30 Attestation: ? I have personally provided critical care time. Time includes review of lab data, radiology results, discussion with consultants, and monitoring for potential decompensation. Intervention performed as documented. Discharge Plan Discharge Clinical Impression: Palpitations Patient Disposition: Home, Self-Care Instructions: Heart Palpitations (ED) Additional Instructions: ?Please follow-up with your primary care physician tomorrow.? If you have any worsening or new symptoms, please return to the emergency room or call 911
--- NOTE | 2023-01-24 19:07 | MHC.EDTECH ---
Labs drawn in triage area and patient placed back in waiting area.
[2023-01-24 20:07] VITALS: BP 136/81; PULSE 89; RESP 17; TEMP 36.7; O2SAT 100
--- NOTE | 2023-01-24 20:31 | PC.NURSE ---
pt a&ox3. respirations even and unlabored. pt reporting intermittent palpitations for a few weeks that tend to subside on their own. pt reports hx of anxiety but reports the feeling does not feel like anxiety. pt normal sinus on tele 97-98. lung sounds clear bilaterally. at bedside discussing pt care.
== END 2023-01-24 22:02 | disposition home or self-care (01) ==
PROVIDERS: Emergency Provider Emergency Medicine; PCP Internal Medicine
DX: I49.9 Cardiac arrhythmia, unspecified (principal); R53.83 Other fatigue; R00.2 Palpitations; Z20.822 Contact with and (suspected) exposure to COVID-19; Z20.828 Contact with and (suspected) exposure to other viral communicable diseases; Z79.899 Other long term (current) drug therapy
CPT/HCPCS: 0241U; 36415; 71046; 80048; 80076; 84443; 84484; 85025; 93005; 99283; 99285

== ENCOUNTER 2023-01-25 11:35 | Emergency (ER) | payer MEDICARE, MEDICAID, SELFPAY ==
[2023-01-25 11:38] VITALS: BP 110/70; PULSE 114; O2SAT 99
[2023-01-25 11:44] VITALS: BP 108/80; PULSE 114; RESP 20; TEMP 36.8; O2SAT 96; BMI 29.2
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
[2023-01-25 18:01] VITALS: BP 123/74; PULSE 100; PULSE 92; RESP 16; O2SAT 83
[2023-01-25 18:03] VITALS: BP 113/80; PULSE 92
[2023-01-25 18:04] VITALS: BP 111/70; PULSE 97; PULSE 98
[2023-01-25 18:31] VITALS: BP 111/70; PULSE 97; RESP 22; O2SAT 100
--- NOTE | 2023-01-25 19:11 | PC.NURSE ---
Nurse at bedside to talk with patient. she was very upset that she feels like she was being dismissed by hospital staff for coming to the ED today. her and mom kept repeating that she only came in because cardiology told her to come in. Dr. Saldana at bedside, pt has plan in place, with visiting nursing who manages her medications and makes she sure she wakes up in the morning and does not over sleep. Pt did not have lab work today, after talking with Dr. Saldana she wants to be d/c home and will continue outpatient follow-up. Pt reporting she baseline has low BP and normal HR. Pt reporting this morning her BP was lower than normal, and her HR was in the 120's, she felt like she had chest tightness, however at this time has recovered. Pt was d/c home with current plan in place.
== END 2023-01-25 19:52 | disposition home or self-care (01) ==
PROVIDERS: Emergency Provider Emergency Medicine
DX: R00.2 Palpitations (principal); R07.89 Other chest pain; R51.9 Headache, unspecified
CPT/HCPCS: 93005; 99283; 99285

== ENCOUNTER 2024-01-15 13:21 | Emergency (ER) | payer MEDICARE, MEDICAID, SELFPAY ==
[2024-01-15 13:26] VITALS: BP 112/82; PULSE 114; RESP 20; TEMP 36.4; O2SAT 98; BMI 26.6
--- NOTE | 2024-01-15 13:27 | ED.GENADULT ---
HPI - General Adult General Stated complaint: Allergic reaction Related Data Allergies Allergy/AdvReac Type Severity Reaction Status Date / Time morphine [MORPHINE] Allergy Unknown PARALYZED Verified 01/15/24 13:27 Penicillins [PENICILLINS] Allergy Unknown ITCHING Verified 01/15/24 13:27 methylphenidate AdvReac Intermediate DEPRESSION Verified 01/15/24 13:27 [From RITALIN] divalproex sodium AdvReac Unknown AFFECTED Verified 01/15/24 13:27 [From DEPAKOTE] SLEEP, SHORT-TERM MEMORY From Thorazine Allergy Unknown UNKNOWN Uncoded 01/15/24 13:27 From Geodon AdvReac Unknown DYSTONIA Uncoded 01/15/24 13:27 Course Course Course Narrative: RME, this is a rapid medical exam performed by Jairo Gao please refer to primary provider for complete H&P- 43 year old female presents for evaluation of an allergic reaction. She gave herself an injection of Tlatz for psoriatic arthritis and believes she is having allergic reaction. She complains of shortness a breath. She complains of feeling swelling in tongue throat. She has no objective findings of anaphylaxis. Discharge Plan Discharge Print Language: Mozambican
== END 2024-01-15 21:26 | disposition left against medical advice (07) ==
LOC: HO.ED 21:17
PROVIDERS: Emergency Provider Emergency Medicine; PCP Internal Medicine
DX: T78.40XA Allergy, unspecified, initial encounter (principal); X58.XXXA Exposure to other specified factors, initial encounter
CPT/HCPCS: 99281

== ENCOUNTER 2024-05-13 18:47 | Emergency (ER) | payer MEDICARE, MEDICAID, SELFPAY ==
--- NOTE | ~2024-05-13 | XR_ITS ---
CLINICAL HISTORY: Palpitations 2 view chest x-ray Comparison: CR/SR - XR CHEST 2V - 01/24/23 18:43 EDT Findings: The lungs are clear. Normal size heart. No acute fracture. IMPRESSION: 1. No acute findings. This document has been electronically signed by: Tima Maravilla MD on 05/13/2024 21:00:10
--- NOTE | 2024-05-13 19:00 | ECG_ITS ---
Test Reason : CHEST PAIN Blood Pressure : */* mmHG Vent. Rate : 98 BPM Atrial Rate : 98 BPM P-R Int : 128 ms QRS Dur : 76 ms QT Int : 334 ms P-R-T Axes : 64 56 50 degrees QTcB Int : 426 ms Normal sinus rhythm Normal ECG When compared with ECG of 25-Jan-2023 11:39, T wave inversion no longer evident in Inferior leads Referred By: Sirena Marques Electronically Signed By: MIGDALIA VALVERDE
[2024-05-13 19:10] VITALS: BP 120/84; PULSE 104; O2SAT 100
[2024-05-13 19:11] VITALS: BP 138/87; PULSE 102; RESP 18; TEMP 37; O2SAT 100; BMI 28.6
--- NOTE | 2024-05-13 19:17 | PC.NURSE ---
Pt is a&ox4, no signs of distress. Pt reports intermittent 2/10 cp and cold chills, denies sick contacts Pt denies n/v/d, dizziness, palpitations, and visual changes Plan of care ongoing.
[2024-05-13 19:40] LABS: MANUAL DIFF FLAG NO
[2024-05-13 19:43] LABS: Basophils Absolute Auto 0.1 X10*3/uL (0.0-0.2); Basophils Percent Auto 0.6 % (0-2); Eosinophils Absolute Auto 0.3 X10*3/uL (0.0-0.4); Eosinophils Percent Auto 2.7 % (0-4); Hematocrit 37.2 % (37.0-47.0); Hemoglobin 12.4 g/dl (12.0-16.0); Imm Gran Abs Auto 0.03 X10*3/uL (0.00-0.03); Imm Gran Pct Auto 0.3 % (0.0-0.4); Lymphocytes Absolute Auto 2.5 X10*3/uL (1.2-4.9); Lymphocytes Percent Auto 26.3 % (20-40); Mean Corpuscular HGB Conc 33.3 g/dl (31.0-35.0); Mean Corpuscular Hemoglobin 28.5 pg (27.0-33.0); Mean Corpuscular Volume 85.5 fL (80.0-98.0); Mean Platelet Volume 8.3 fL (9.4-12.3); Monocytes Absolute Auto 0.6 X10*3/uL (0.1-1.2); Monocytes Percent Auto 6.4 % (2-11); Neutrophils Percent Auto 63.7 % (45-73); Platelet Count 293 X10*3/uL (160-400); Red Blood Count 4.35 X10*6/uL (4.20-5.50); Red Cell Distribution Width 13.7 % (11.0-16.0); White Blood Count 9.4 X10*3/uL (4.8-10.8)
--- NOTE | 2024-05-13 19:47 | ED_ITS ---
HPI - Chest Pain General Chief Complaint: Chest Pain Stated Complaint: heart palpitations, HR 130's Time Seen by Provider: 05/13/24 18:59 History of Present Illness ED Provider: Dr. Marques HPI narrative: 44 y/o F patient; PMH PTSD, HTN, palpitations; presents from home report of 05/27 central non-radiating chest pain associated with cold chills. Otherwise denies: nausea/vomiting, fever or chills, abdominal pain, SOB, cough/congestion. Patient last seen in this emergency department 01/24 and 01/25/2023 for palpitations. Related Data Allergies Allergy/AdvReac Type Severity Reaction Status Date / Time morphine [MORPHINE] Allergy Unknown PARALYZED Verified 05/13/24 19:13 Penicillins [PENICILLINS] Allergy Unknown ITCHING Verified 05/13/24 19:13 methylphenidate AdvReac Intermediate DEPRESSION Verified 05/13/24 19:13 [From RITALIN] divalproex sodium AdvReac Unknown AFFECTED Verified 05/13/24 19:13 [From DEPAKOTE] SLEEP, SHORT-TERM MEMORY From Thorazine Allergy Unknown UNKNOWN Uncoded 05/13/24 19:13 From Geodon AdvReac Unknown DYSTONIA Uncoded 05/13/24 19:13 Review of Systems 2 Review of Systems: Yes all other systems are reviewed and are negative PMFSH Past Medical History Attestation statement: The following information was validated with the patient. Source: old records reviewed Social History Social History Smoked in Last 30 Days: No Use of substances other than those prescribed or required for medical reasons: No Advance Directives: No Advance Directives Information Provided: No Physical Exam 2 Vital Signs: Vital Signs: Last Vital Signs Temp 98.6 F 05/13/24 19:11 Pulse 102 H 05/13/24 19:11 Resp 18 05/13/24 19:11 BP 138/87 05/13/24 19:11 Pulse Ox 100 05/13/24 19:11 O2 Del Method Room Air 05/13/24 19:11 BMI result Body Mass Index 28.6 Patient is afebrile and hemodynamically stable, mild tachycardia to 102BPM. Const: General: cooperative and no acute distress HEENT: Head: Yes normal to inspection and Yes atraumatic Eyes: General: appearance normal, both eyes and all related structures P upils: Equal, round and reactive pupils present EOM: EOMs intact bilaterally Neck: Neck: Yes normal visual inspection, Yes full ROM, Yes supple and No tender Chest: Chest palpation & inspection: normal inspection of the chest and normal palpation of entire chest wall Resp: Effort & Inspection: normal respiratory effort, able to speak in complete sentences, no cough and no respiratory distress Auscultation: clear to auscultation bilaterally Cardio: Rate: regular rate Rhythm: regular rhythm Peripheral pulses: P eripheral pulses 2+ throughout GI: Inspection: Yes normal to inspection, No Abdominal wall edema and No distended Palpation (GI): Soft to palpation, not firm, nontender, no guarding and not rigid Auscultation: normal bowel sounds Back/Spine/Pelvis: Back: No back tenderness Neuro: Cranial nerves: Yes Equal, round and reactive pupils present Course Course Course Narrative: Patient is afebrile and hemodynamically stable. Will obtain EKG, CXR, and laboratory studies. Reevaluation(s) Reevaluation #1: Labs reviewed. Troponin negative, given over 24 hours of constant pain - unlikely ACS. Beta hcg negative. Remainder of labs unremarkable. Unlikely pneumonia, pneumothorax, aortic dissection given reassuring CXR. Patient's chest pressure is improving. She plans to follow up with PCP within the next 1 - 2 days. Plan: Discharge to home with PCP follow up Return precautions given Medical Decision Making Lab Data 05/13/24 19:37 05/13/24 19:37 Labs: Lab Results 05/13/24 05/13/24 Range/Units 19:36 19:37 WBC 9.4 (4.8-10.8) X10*3/uL RBC 4.35 (4.20-5.50) X10*6/uL Hgb 12.4 (12.0-16.0) g/dl Hct 37.2 (37.0-47.0) % MCV 85.5 (80.0-98.0) fL MCH 28.5 (27.0-33.0) pg MCHC 33.3 (31.0-35.0) g/dl RDW 13.7 (11.0-16.0) % Plt Count 293 (160-400) X10*3/uL MPV 8.3 L (9.4-12.3) fL Immature Gran % (Auto) 0.3 (0.0-0.4) % Neut % (Auto) 63.7 (45-73) % Lymph % (Auto) 26.3 (20-40) % [place] % (Auto) 6.4 (2-11) % Eos % (Auto) 2.7 (0-4) % Baso % (Auto) 0.6 (0-2) % Lymph # (Auto) 2.5 (1.2-4.9) X10*3/uL [place] # (Auto) 0.6 (0.1-1.2) X10*3/uL Eos # (Auto) 0.3 (0.0-0.4) X10*3/uL Baso # (Auto) 0.1 (0.0-0.2) X10*3/uL Abs Immat Gran (auto) 0.03 (0.00-0.03) X10*3/uL Absolute Neuts (auto) 6.0 (2.0-8.3) x10*3/uL Absolute Nucleated RBC 0.000 (0.0-0.012) X10*3/uL Nucleated RBC % (auto) 0.0 (0.0-0.2) /100WBC Sodium 138 (135-145) mmol/L Potassium 3.8 (3.3-5.1) mmol/L Chloride 109 H (96-108) mmol/L Carbon Dioxide 24 (22-29) mmol/L Anion Gap 9 L (12-20) BUN 16 (9-16) mg/dL Creatinine 0.75 (0.5-1.4) mg/dL Estim Creat Clear Calc 91.8 Estimated GFR > 60 Random Glucose 89 (60-115) mg/dL Calcium 8.8 D (8.4-10.2) mg/dL Total Bilirubin 0.2 (0.0-1.0) mg/dL AST 16 (5-31) U/L ALT 18 (0-31) U/L Alkaline Phosphatase 57 (39-117) U/L Troponin I High Sens < 2.7 (<3.5-17.0) ng/L Total Protein 7.6 (6.5-8.0) g/dL Albumin 4.0 (3.5-5.0) g/dL Beta HCG, Quant < 2 mIU/mL Independent Interpretation I performed an independent interpretation of an: EKG Interpretation: NSR 98BPM without ischemic changes, normal intervals Radiology Impression Discussion of test interpretation with radiology: I have reviewed the radiologist's reading. Radiologist Impression: CLINICAL HISTORY: Palpitations 2 view chest x-ray Comparison: CR/SR - XR CHEST 2V - 01/24/23 18:43 EDT Findings: The lungs are clear. Normal size heart. No acute fracture. IMPRESSION: 1. No acute findings. This document has been electronically signed by: Tima Maravilla MD on 05/13/2024 21:00:10 Discharge Plan Discharge Clinical Impression: Chest pain Patient Disposition: Home, Self-Care Instructions: Chest Pain (ED) Additional Instructions: As we discussed, you were seen today for chest pain. Your EKG of your heart was reassuring. Your CXR and lab work was also reassuring. Recommend you follow up with your PCP within the next 1 - 2 days for re- evaluation and to discuss your recent emergency department visit. Return to the emergency department for: Chest pain Difficulty breathing Passing out Print Language: Georgian
[2024-05-13 20:03] LABS: Alanine Aminotransferase 18 U/L (0-31); Alkaline Phosphatase 57 U/L (39-117); Anion Gap 9 (12-20); Aspartate Amino Transferase 16 U/L (5-31); Bilirubin Total 0.2 mg/dL (0.0-1.0); Blood Urea Nitrogen 16 mg/dL (9-16); Calcium 8.8 mg/dL (8.4-10.2); Carbon Dioxide 24 mmol/L (22-29); Chloride 109 mmol/L (96-108); Creatinine Clr Calc Pharmacy 91.8; Estimated Glomerular Filt Rate > 60; Glucose Random 89 mg/dL (60-115); Potassium 3.8 mmol/L (3.3-5.1); Sodium 138 mmol/L (135-145); Total Protein 7.6 g/dL (6.5-8.0)
[2024-05-13 20:08] LABS: Troponin-I High Sensitivity < 2.7 ng/L (<3.5-17.0)
[2024-05-13 20:11] LABS: HCG Quantitative < 2 mIU/mL
--- OUTSIDE RECORDS SUMMARY | 2024-05-13 20:12 | XMS_ITS | Data Portability ---
Author Organization [facility], [address] Address [address] [place] [address] Care Team Providers Care Literacy Coach Name Role Phone DARIEN THOMAS Primary Care Provider Assessment No assessment recorded. Plan of Treatment Reminders Order Date Submit Date Provider Last Modified By Organization Details Last Modified Time Details Appointments None recorded. Lab rapid flu (A+B) 2022 023 [email or web address] [facility], [address] [place] [address], [phone], 3 13:40:45 rapid SARS CoV 2 Ag, QL IA, respiratory specimen 2022 023 [facility] [address] [place] [address], [address] [place] [address], [phone], 3 13:40:45 Referral otolaryngol ogist referral - chronic sinusitis with copious amounts of posterior nasal discharge . need to rule out deviated septum among other pathologies . Patient request ENT referral also. 2022 023 [email or web address] 1 Raoul Carrion MD, [address], [address], [place], [address], 3 08:04:04 Procedures None recorded. Surgeries None recorded. Imaging None recorded. Medication Orders prednisone 20 mg tablet 2022 023 [facility] #[id number], [address] [facility], [place], [address], 3 13:40:54 amoxicillin 875 mg-zuhair gillespie clavulanate 125 mg tablet 2022 023 [facility] #[id number], [address] [place], [address], 13:40:48 fluconazole 150 mg tablet 2022 023 [facility] #[id number], [address] [place], [address], 13:40:48 Patient TargetsNo targets recorded. Patient Instructions Encounter Date Encounter Id Patient Instructions Last Modified By Organization Details Last Modified Time 04/25/2022 [id number] cough: care instructions [email or web address] Not available 04/25/2022 13:40:45 Sinusitis is an infection of the lining of the sinus cavities in your head. Sinusitis often follows a cold. It causes pain and pressure in your head and face. In most cases, sinusitis gets better on its own in 1 to 2 weeks. But some mild symptoms may last for several weeks. Sometimes antibiotics are needed. if you are having problems. It's also a good idea to know your test results and keep a list of the medicines you take. How can you care for yourself at home? Take an rofi-tpk-ifccxsr pain medicine. Avoid Ibuprofen, Aleve and Aspirin if . If the doctor prescribed antibiotics, take them as directed. Do not stop taking them just because you feel better. You need to take the full course of antibiotics. Be careful when taking ojxs-wrg-srsyhlv cold or influenza (flu) medicines and Tylenol at the same time. Many of these medicines have acetaminophen, which is Tylenol. Read the labels to make sure that you are not taking more than the recommended dose. Too much acetaminophen (Tylenol) can be harmful. Breathe warm, moist air from a steamy shower, a hot bath, or a sink filled with hot water. Avoid cold, dry air. Using a humidifier in your home may help. Follow the directions for cleaning the machine. Use saline (saltwater) nasal washes. This can help keep your nasal passages open and wash out mucus and bacteria. You can buy saline nose drops at a grocery store or drugstore. Or you can make your own at home by adding 1 teaspoon (5 millilitres) of salt and 1 teaspoon (5 millilitres) of baking soda to 2 cups (500 mL) of distilled water. If you make your own, fill a bulb syringe with the solution, insert the tip into your nostril, and squeeze gently. Blow your nose. Put a hot, wet towel or a warm gel pack on your face 3 or 4 times a day for 5 to 10 minutes each time. Try a decongestant nasal spray like oxymetazoline (Drixoral). Do not use it for more than 3 days in a row. Using it for more than 3 days can make your congestion worse. 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 need to rule out deviated sept chronic sinusitis with copious amounts of posterior nasal discharge . need to rule out deviated septum among other pathologies. Patient request ENT referral also. Referring Physician: Zander Lo, Urgent Care, Encounter Date: 04/25/2022 Results Created Date Observation Date Name Description Value Unit Range Abnormal Flag Note LastModifiedBy Organization Detail LastModifiedTime 04/25/1904/25/2022 rapid SARS CoV 2 Ag, QL IA, respi rator y speci men Unknown Analyte Normal =Negat linda Not Available [facility] [address], [address], 04/25/2022 12:42:36 04/25/1904/25/2022 rapid SARS CoV 2 Ag, QL IA, respi rator y speci men Unknown Analyte negati ve Not Available [facility] [address], [address], 04/25/2022 12:42:36 04/25/19 23 04/25/2022 rapid flu (A+B) Unknown Analyte Normal = Negati ve Not Available frederick [address], [address], 04/25/2022 12:42:30 04/25/19 23 04/25/2022 rapid flu (A+B) Unknown Analyte Normal = Negati ve Not Available [address]frederick walter [address], [place], [address], 04/25/2022 12:42:30 04/25/19 23 04/25/2022 rapid flu (A+B) Unknown Analyte negati ve Not Available 20[address]frederick [address], [address], 04/25/2022 12:42:30 04/25/19 23 04/25/2022 rapid flu (A+B) Unknown Analyte negati ve Not Available [address]er[address], [place], [address], 04/25/2022 12:42:30 Result Notes None recorded. Problems Name Problem SNOMED Code Status Onset Date Resolution Date Notes Provider Name and Address Organization Details Recorded Time Tachycardia 8004512 Active 2022 Veronica Taiban null, PA - [facility] 3 12:41:04 Low blood pressure 30486998 Active 2022 Veronica Taiban null, PA - [facility] 3 12:41:14 Posttraumatic stress disorder 07608983 Active 2022 Veronica Carmelina null, PA - [facility] 3 12:41:20 Depressive disorder 82705514 Active 2022 Veronica Carmelina null, PA - [facility] 3 12:41:26 Psoriasis 1933355 Active 2022 Veronica Carmeilna null, PA - [facility] 3 12:41:37 Overactive urinary bladder 708340373 Active 2022 Veronica Taiban null, PA - [facility] 3 12:41:45 Migraine 96686081 Active 2022 Veronica Carmelina null, PA - [facility] 12:41:56 Problem Notes None recorded. Procedures Surgical History Date Name Laterality Status Provider Name and Address Organization Details Recorded Time Remove tonsils and adenoids completed Veronicacarolyn Cosme PA - [facility] 04/25/2022 12:42:13 tympanostomy completed Veronicacarolyn Cosme PA - [facility] 04/25/2022 12:42:24 Imaging Results None recorded. Procedure Notes None recorded. Medical Equipment None Reported. Allergies No known drug allergies Medications Name Sig Start Date Stop Date Status Note LastModified by Organization Details LastModified Time fluconazole 150 mg tablet Take 1 tablet every day by oral route for 1 day. 023 active Not Available Not Available Not Avai lable prednisone 20 mg tablet Take 2 tablets every day by oral route in the morning for 5 days. 023 active Not Available Not Available Not Avai lable amoxicillin 875 mg-potassium clavulanate 125 mg tablet Take 1 tablet every 12 hours by oral route with meals for 10 days. 023 active Not Available Not Available Not Avai lable sertraline active Not Available Not Av ailable Not Available melatonin active Not Available Not Louise ilable Not Available loratadine active Not Available Not Av ailable Not Available Cogentin active Not Available Not Avai lable Not Available propranolol active Not Available Not A vailable Not Available Seroquel active Not Available Not Avai lable Not Available trazodone active Not Available Not Louise ilable Not Available Lamictal active Not Available Not Avai lable Not Available midodrine active Not Available Not Louise ilable Not Available clonazepam active Not Available Not Av ailable Not Available Myrbetriq active Not Available Not Louise ilable Not Available Vitals Date Recorded Body height Provider Name an d Address Organization Details Last Updated DateTime 04/25/2022 160.02 cm Veronica Castillobe PA - [facility] 0 04/25/2022 12:40:14 Date Recorded Body mass index (BMI) Body weight Provider Name and Address Organization Details Last Updated DateTime 04/25/2022 28.2 kg/m2 54353.19 g Veronica Castillobe PA - [facility] 04/25/2022 12:40:17 Date Recorded Oxygen saturation Oxygen saturation in Arterial blood by Pulse oximetry Provider Name and Address Organization Details Last Updated DateTime 04/25/2022 97 % 97 % Veronica Cosme PA - [facility] 04/25/2022 12:40:28 Date Recorded Heart rate Provider Name an d Address Organization Details Last Updated DateTime 04/25/2022 116 /min Veronica Cosme PA - [facility] 0 04/25/2022 12:40:32 Date Recorded Respiratory rate Provider Name a nd Address Organization Details Last Updated DateTime 04/25/2022 18 /min Veronica Cosme PA - [facility] 0 04/25/2022 12:40:36 Date Recorded Body temperature Provider Name a nd Address Organization Details Last Updated DateTime 04/25/2022 98.1 [degF] Veronica Cosme PA - [facility] 04/25/2022 12:40:41 Date Recorded Systolic blood pressure Diastolic blood pressure Provider Name and Address Organization Details Last Updated DateTime 04/25/2022 103 mm[Hg] 71 mm[Hg] Veronica Cosme PA - [facility] 04/25/2022 12:40:25 Social History Question Answer Notes LastModified by Organizat ion Details LastModified Time Tobacco Smoking Status Never Smoker Veronica Cosme nancy, PA - [facility] 04/25/2022 12:42:05 What Is Your Level Of Alcohol Consumption? None Information not available 04/25/2022 Have You Had Direct Contact, Or Contact During Intimacy, With Monkeypox Rash, Scabs, Or Body Fluids From A Person With Monkeypox? No Information not available 04/25/2022 Do You Use Any Illicit Or Recreational Drugs? No Information not available 04/25/2022 Have You Recently Traveled Abroad? No Information not available 04/25/2022 Do You Or Have You Ever Used Any Other Forms Of Tobacco Or Nicotine? No Information not available 04/25/2022 Sex: Unknown Functional Status None recorded. Mental Status None recorded. Family History Nothing Reported. Medical History No medical history recorded. Gynecological HistoryNo gynecological history recorded. Obstetrics History GPAL:G 0 P 0 0 0 0 Immunizations Vaccine Type Date Status Note Provider Nam e and Address Organization Details Recorded Time COVID-19, mRNA, LNP-S, PF, 30 mcg/0.3 mL dose 1 completed Veronica Carmelina null, PA - [facility] 04/25/2022 12:40:49 COVID-19, mRNA, LNP-S, bivalent, PF, 50 mcg/0.5 mL or 25mcg/0.25 mL dose 2 completed Veronica Taiban null, PA - [facility] 04/25/2022 12:40:49 COVID-19, mRNA, LNP-S, PF, 30 mcg/0.3 mL dose 1 completed Veronica Taiban null, PA - [facility] 04/25/2022 12:40:49 COVID-19, mRNA, LNP-S, PF, 30 mcg/0.3 mL dose 1 completed Veronica Carmelina null, PA - [facility] 04/25/2022 12:40:49 Influenza, split virus, quadrivalent, preservative 2 completed Veronica Taiban null, PA - [facility] 04/25/2022 12:40:49 Past Encounters Encounter ID Performer Location Encounter Start Date Encounter Closed Date Diagnosis/Indication Diagnosis SNOMED-CT Code Diagnosis ICD10 Code Diagnosis Note [id number] [address] [place] [address] 06/29/2015 17:39:58 06/29/2015 18:25:51 [id number] [address] [address] [place] [address] 03/25/2016 11:43:08 03/25/2016 12:07:32 [id number] [address] [address] [place] [address] 07/29/2016 10:52:08 07/29/2016 11:32:30 [id number] [address] [address] [place] [address] 02/01/2016 14:21:04 02/01/2016 14:55:15 [id number] [address] [address] [facility] [place] [address] 02/02/2019 10:55:27 02/02/2019 11:21:07 [id number] [address] [address] [facility] [place] [address] 06/15/2016 12:20:20 06/15/2016 13:33:08 [id number] [address] [facility] [place] [address] 06/13/2020 13:57:26 06/13/2020 17:01:28 [id number] Zander Lo NP [address] [facility] [place] [address] 04/25/2022 11:51:24 04/25/2022 13:43:24 Exposure to SARS-CoV-2 590249723 Z20.822 Acute sinusitis 64026210 J01.90 Health Concerns Section Related Observation LastModified by Organization Detai ls LastModified Time None Recorded Concern Status LastModified by Organization Details LastModified Time None Recorded Advance Directives Directive None Recorded Payers Encounter Date Sequence Insurance Name Policy Number Policy Galarza Covered Member ID Galarza Member ID Guarantor Name 06/15/2016 1 [place] [employer] Meggan Acevedo Ian [id number] Meggan Acevedo Ian 06/15/2016 2 [place] Meggan Acevedo Ian [id number] Meggan Acevedo Ian 07/29/2016 1 [place] [employer] Meggan Acevedo Ian [id number] Meggan A Ian 07/29/2016 2 [place] Meggan Acevedo Ian [id number] Meggan Acevedo Ian 02/02/2019 1 [place] [employer] Meggan Acevedo Ian [id number] Meggan A Ian 02/02/2019 2 [place] Meggan Acevedo Ian [id number] Meggan Acevedo Ian 06/13/2020 1 [place] [employer] Meggan Acevedo Ian [id number] Meggan A Ian 06/13/2020 2 [place] Meggan Acevedo Ian [id number] Meggan Sosa 04/25/2022 1 [place] [facility] Meggan Sosa [id number] Meggan Sosa 04/25/2022 2 [place] [facility] Meggan Sosa [id number] Meggan Sosa Notes Date Note Type Note Provider Name and Address Organization Details Recorded Time 04/25/2022 text/html CoughReported bypatient.Notes:teodoro al congestion and post nasal drip x 2 weeks. Zander Lo NP [address] [place], [address], PA - [facility] 04/25/2022 13:41:54 OBGyn Episode No OBEpisode recorded.
--- OUTSIDE RECORDS SUMMARY | 2024-05-13 20:12 | XMS_ITS | Clinical Summary ---
Author Organization [facility] Address [address] [place] [address] Care Team Providers Care Fence Installer Foreman Name Role Phone Pcp, No Primary Care Provider [phone] Allergies Active Allergy Reactions Criticality Noted Date Comments Opioids - Morphine Analogues 024 Medications benztropine (COGENTIN) 0.5 MG tablet TAKE 1 TABLET BY MOUTH EVERY DAY IN THE MORNING 1 Active cetirizine (ZyrTEC) 10 MG tablet Take 1 tablet (10 mg total) by mouth 4 Active clobetasoL (TEMOVATE) 0.05 % ointment 4 Active chlorhexidine (PERIDEX) 0.12 % solution PLEASE SEE ATTACHED FOR DETAILED DIRECTIONS 4 Active clonazePAM (KlonoPIN) 1 MG tablet 4 Active fluticasone propionate (Flonase Allergy Relief) 50 mcg/actuation nasal spray See Instructions, 1 sprays Daily in each nostril, # 16 Gm, 0 Refills, Maintenance, [facility] request if the prescription is for a schedule II opioid drug., 159, cm, 04/11/23 15:07:00 EST, H... 2 Active ipratropium (ATROVENT) 42 mcg (0.06 %) nasal spray USE 2 SPRAYS IN BOTH NARES 3 TIMES A DAY Active Taltz Autoinjector, 2 Pack, 80 mg/mL atIn 4 Active lamoTRIgine (LaMICtal) 100 MG tablet 4 Active lamoTRIgine (LaMICtal) 25 MG tablet 4 Active Myrbetriq 50 mg 4 Active QUEtiapine (SEROquel) 100 MG tablet 4 Active traZODone (DESYREL) 50 MG tablet Take 1 tablet (50 mg total) by mouth 9 Active valACYclovir (VALTREX) 1000 MG tablet Take 1 tablet (1,000 mg total) by mouth 4 Active Active Problems No known active problems Social History Tobacco Use Types Packs/Day Years Used Date Smoking Tobacco: Never Passive Smoke Exposure: Never Smokeless Tobacco: Never Comments No Sex and Gender Information Value Date Recorded Sex Assigned at Not on file Legal Sex Female 1:45 PM EST Gender Identity Not on file Sexual Orientation Not on file Last Filed Vital Signs Vital Sign Reading Time Taken Comments Blood Pressure - - Pulse - - Temperature 36.4 ??C (97.5 ??F) 11/07/2023 2:24 PM ED T Respiratory Rate 20 11/07/2023 2:24 PM EDT Oxygen Saturation 99% 11/07/2023 2:24 PM EDT Inhaled Oxygen Concentration - - Weight - - Height - - Body Mass Index - - Plan of Treatment Health Maintenance Due Date Last Done Comments Depression: Screening Annually using PHQ-2/9 in Adults 18 yrs or above (or HM Modifier)([facility]) 02/25/1998 Hepatitis C Virus Infection in Adolescents and Adults: Screening (or Modifier) ([facility]) 02/25/1998 SDOH Screening Reminder: Annually for all adults ([facility]) 02/25/1998 Lipid Screening: Once for Women aged 20 to 45 yrs ([facility]) 2000 Cervical Cancer Screenin-65 yrs of age (or Modifier) 02/25/2001 Cervical Cancer Screening: Pap every 3 yrs pts age 21-65 02/25/2001 Cervical Cancer: Pap Screening with Modifier timing ([facility]) 02/25/2001 Cervical Cancer: hrHPV alone or with cotesting Pap for Pts 30-65yrs screening every 5yrs ([facility]) 02/25/2001 DTaP/Tdap/Td Vaccines ([facility]) (1 - Tdap) 07/18/2023 07/17/2023, 10/13/2012, 07/16/2000 Flu Vaccination: Yearly for ages 18mos through 64 years (or Modifier)([facility]) 11/16/2023 COVID-19 Vaccine Screening: Initial Series and Booster Status ([facility]) (2023- season) 2023 02/10/2021, 06/08/2020, 05/18/2020 Zoster/Shingles Vaccine Series Screening: Adults aged 18+ yrs (or HM Modifiers)([facility]) (1 of 2) 02/25/2030 Pneumococcal Vaccination Screening: Pts 0-19 & 19-64 yrs of age ([facility]) Aged Out 08/14/2012 No longer eligible b ased on patient's age to complete this topic Medical Devices Not on file Insurance [facility] Care Teams Fence Installer Foreman Relationship Specialty Start Date End Date Pcp, Tressa PCP - General Family Medicine 11/07/23
--- OUTSIDE RECORDS SUMMARY | 2024-05-13 20:12 | XMS_ITS | Data Portability ---
Author Organization [place] - [facility], Allergy Address [address] [place] [phone] Assessment No assessment recorded. Plan of Treatment Reminders Order Date Submit Date Provider Last Modified By Organization Details Last Modified Time Details Appointments None record ed. Lab None record ed. Referral None record ed. Procedures None record ed. Surgeries None record ed. Imaging None record ed. Medication Orders None record ed. Patient TargetsNo targets recorded. Patient InstructionsNo instructions recorded. Reason for Referral None Reported. Problems Name Problem SNOMED Code Status Onset Date Resolution Date Notes Provider Name and Address Organization Details Recorded Time Oropharyngeal dysphagia 42089023 Active 2023 JOSEPH Drummond MD [address] [place] [address], [phone], [place] - [facility] 10:37:19 Xerostomia 85598437 Active 2023 JOSEPH Drummond MD [address] [place] [address], [phone], [place] - [facility] 10:46:11 Problem Notes None recorded. Procedures Surgical History Date Name Laterality Status Provider Name and Address Organization Details Recorded Time 12/07/2023 FFL_RE completed JOSEPH SU MD [address] [place] [address], [phone], [facility] - [facility] 12/07/2023 10:50:08 tonsilecto my/adenoid s completed Tirso Oliva [facility] 12/07/2023 10:15:43 Imaging Results None recorded. Procedure Notes None recorded. Medical Equipment None Reported. Allergies Allergen ID Allergen Name Allergen Category Reaction Reaction Severity Criticality Documentation Date Start Date Code Code System Note Provider Name and Address Organization Details Recorded Time 045886 morphine medicatio n Not available Not available Not available 12/07/2023 7052 RxNorm Tirso cruz [place] - [facility] 4 10:15:28 Medications Name Sig Start Date Stop Date Status Note LastModified by Organization Details LastModified Time benztropine 0.5 mg tablet active Not Available Not Available Not Available trazodone 50 mg tablet active Not Available Not Available No t Available cetirizine 10 mg tablet active Not Available Not Available Not Available fluconazole 150 mg tablet TAKE 1 TABLET BY MOUTH ONCE active Not Available Not Available N ot Available valacyclovir 1 gram tablet TAKE 1 TABLET BY MOUTH TWICE A DAY active Not Available Not Available No t Available clonazepam 1 mg tablet active Not Available Not Available No t Available quetiapine 100 mg tablet active Not Available Not Available Not Available lamotrigine 25 mg tablet active Not Available Not Available Not Available propranolol 10 mg tablet active Not Available Not Available Not Available benztropine 1 mg tablet active Not Available Not Available Not Available sertraline 25 mg tablet active Not Available Not Available Not Available midodrine 2.5 mg tablet active Not Available Not Available Not Available clobetasol 0.05 % topical ointment PLEASE SEE ATTACHED FOR DETAILED DIRECTIONS active Not Available Not Available N ot Available ipratropium bromide 42 mcg (0.06 %) nasal spray USE 2 SPRAYS IN BOTH NARES 3 TIMES A DAY active Not Available Not Available No t Available betamethason e dipropionate 0.05 % topical ointment active Not Available Not Available Not Available fluticasone propionate 50 mcg/actuatio n nasal spray,suspen ama SPRAY 1 SPRAY INTO EACH NOSTRIL EVERY DAY active Not Available Not Available No t Available fludrocortis one 0.1 mg tablet active Not Available Not Available Not Available lamotrigine 100 mg tablet active Not Available Not Available Not Available loratadine 10 mg tablet active Not Available Not Available Not Available amoxicillin 875 mg-potassium clavulanate 125 mg tablet TAKE 1 TABLET BY MOUTH EVERY 12 HOURS FOR 7 DAYS active Not Available Not Available N ot Available chlorhexidin e gluconate 0.12 % mouthwash PLEASE SEE ATTACHED FOR DETAILED DIRECTIONS active Not Available Not Available N ot Available Humira Pen 40 mg/0.8 mL subcutaneous kit active Not Available Not Available Not Available Myrbetriq 50 mg tablet,exten ded release active Not Available Not Available Not Available Taltz Autoinjector (2 Pack) 80 mg/mL subcutaneous active Not Available Not Available Not Available Vitals Date Recorded Body height Body mass index (BMI) Body weight Provider Name and Address Organization Details Last Updated DateTime 12/07/2023 160.02 cm 27.6 kg/m2 70140.41 g Tirso Oliva [place] - [facility] 12/07/2023 10:17:44 Social History None recorded. Functional Status None recorded. Mental Status None recorded. Family History Nothing Reported. Medical History No medical history recorded. Gynecological HistoryNo gynecological history recorded. Obstetrics History GPAL:G 0 P 0 0 0 0 Past Encounters Encounter ID Performer Location Encounter Start Date Encounter Closed Date Diagnosis/Indication Diagnosis SNOMED-CT Code Diagnosis ICD10 Code Diagnosis Note [id number] JOSEPH SU MD [facility] [address] [phone] 12/07/2023 09:35:47 12/07/2023 10:48:53 Xerostomia 75759605 K11.7 soft palate has erythema. She likely has oral inflammati on. I discussed trying a topical or systemic steroid but we agreed to defer. She will continue her biotine. She feels things are improving. I will recheck in a few months. Oropharyng eal dysphagia 52119508 R13.12 Laryngosoc py was notable for symmetric lingual tonsil hypertroph y. I will monitor this with serial exams. This may be affecting her swallowing . Health Concerns Section Related Observation LastModified by Organization Detai ls LastModified Time None Recorded Concern Status LastModified by Organization Details LastModified Time None Recorded Advance Directives Directive None Recorded Payers Encounter Date Sequence Insurance Name Policy Number Policy Galarza Covered Member ID Galarza Member ID Guarantor Name 12/07/2023 1 [place] [employer] Meggan Sosa [id number] Meggan Sosa 12/07/2023 2 [place] Meggan Ian [id number] Meggan Ian Notes Date Note Type Note Provider Name and Address Organization Details Recorded Time 12/07/2023 text/html Two months ago s he had dry mouth, nasal congestion and sore throat. She saw her PCP and her dentist. She has had canker sores which comes and go. Her dentist gave her chlorhexidine which did seem to help. She has been using biotine mouth rinse for the dryness. Her throat feels dry and irritated. She has some intermittent trouble swallowing as well. Denies heartburn. She does not smoke. JOSEPH SU MD [address] [place] [address], [place], [phone], [facility] - [facility] 12/07/2023 10:50:28 OBGyn Episode No OBEpisode recorded.
[2024-05-13 21:13] LABS: Magnesium 2.1 mg/dL (1.6-2.6)
[2024-05-13 21:20] VITALS: BP 120/87; PULSE 87; RESP 16; TEMP 37.1; O2SAT 100
[2024-05-13 21:28] LABS: Thyroid Stimulating Hormone 1.45 uIU/mL (0.32-4.0)
[2024-05-13 21:48] VITALS: BP 120/87; PULSE 87; RESP 16; TEMP 37.1; O2SAT 100
== END 2024-05-13 21:50 | disposition home or self-care (01) ==
PROVIDERS: Emergency Provider Emergency Medicine; PCP Internal Medicine
DX: R07.9 Chest pain, unspecified (principal); I10 Essential (primary) hypertension; R68.83 Chills (without fever); Z79.899 Other long term (current) drug therapy
CPT/HCPCS: 36415; 71046; 80053; 83735; 84443; 84484; 84702; 85025; 93005; 99283; 99285

== ENCOUNTER → 2024-05-13 19:00 | Outpatient (BNV) | payer MEDICARE, MEDICAID, SELFPAY | PROVIDERS: Emergency Provider Emergency Medicine; PCP Internal Medicine; Visit Provider Internal Medicine | DX: R07.9 Chest pain, unspecified (principal) | CPT/HCPCS: 93010 ==

== ENCOUNTER → 2024-05-13 19:51 | Outpatient (BNV) | payer MEDICARE, MEDICAID, SELFPAY | PROVIDERS: Emergency Provider Emergency Medicine; PCP Internal Medicine; Visit Provider Student in an Organized Health Care Education/Training Program | DX: R00.2 Palpitations (principal) | CPT/HCPCS: 71046 ==